=== PATIENT | male | born 1965 | race Caucasian/White ===

== ENCOUNTER 2018-05-19 15:11 | Inpatient (IN) | payer SELFPAY ==
[2018-05-19 15:42] VITALS: BMI 21.9
--- NOTE | 2018-05-19 15:43 | PCM.HP.STD ---
<Philip Garcia - Last Filed: 05/19/18 15:43> Problem List (1) Alcohol withdrawal Status: Acute (2) HLD (hyperlipidemia) Status: Chronic History of Present Illness Date of Admission: 05/19/18 Chief Complaint: acute alcohol withdrawal The patient is a 52 year old M with a pmhx of alcoholism, hld, who presents to the hospital for help with alcohol detox in acute withdrawal. His current symptoms include loose stools, abominal cramps, and lightheadedness. No hx of withdrawal seizures. He last drank at about 1030 this AM. He drinks 20-24 beers per day sometimes mixed drinks at lunch. He smokes 2-3 cigarettes per day. He does not want a patch. No other substance abuse. He last went through detox at [facility] in august and was sober for 4 months. He plans to pursue the [facility] program to stay clean. [] Past Medical History Past Medical History (Chronic Problems): Chronic Problems HLD (hyperlipidemia) (Chronic) Home Medications: Ambulatory Orders Medication Instructions Recorded Pitavastatin Calcium [Livalo] 4 mg PO DAILY 05/19/18 Surgical History: rotator cuff repair Psychiatric History: No pertinent psych hx Lives: With Family Smoking Status: Current every day smoker Tobacco Use: Cigarettes, Chew Alcohol: Heavy Drugs: None - *Family History Maternal History Items: No pertinent history Paternal History Items: Heart Disease Review of Systems Constitutional: Denies: Chills, Fever, Weight Change HEENT: Denies: Head Aches, Sinus Congestion, Sinus Drainage Cardiovascular: Denies: Chest Pain, Palpitations Respiratory: Denies: Cough, Shortness of breath at rest, Sputum production Gastrointestinal: Reports: Diarrhea, - - abdominal cramps. Denies: Nausea, Vomiting Genitourinary: Denies: Dysuria Musculoskeletal: Denies: Joint Pain, Joint Tenderness Skin: Denies: Rash, Wounds Neurological: Reports: - - lightheadedness. Denies: Focal weakness, Numbness, Tingling Psychiatric: Denies: Anxiety, Depression, Homicidal Ideations, Suicidal Ideations Hematologic/ Lymphatic: Denies: Easy Bruising, Easy Bleeding VTE Information - Inpt Only VTE Present on Admission: No VTE Mechan Device Prophylaxis: None VTE Pharm Prophylaxis ordered?: No Reason prophylaxis not ordered:: Procedure Not Indicated Patient Problems: Active and Suspected Problems Alcohol withdrawal (Acute) - Physical Exam General: Alert, Oriented x3, Cooperative HEENT: Atraumatic, PERRLA, EOMI, Normocephalic Neck: Supple, No JVD, Negative Carotid Bruits Lungs: Clear to auscultation, Normal air movement Cardiovascular: Regular rate, No murmurs Abdomen: Bowel Sounds Present, Soft, Non Tender Extremities: No edema, Capillary Refill Less than 3 Seconds Skin: No rashes, No breakdown Musculoskeletal: No Tenderness to Palpation of Joints or Extremities Neurological: Cranial nerves II-XII grossly intact Psych/Mental Status: Normal Affect, Appropriate, Alert and oriented to time, place, person, mood and affect Assessment/Plan All Active Problems Alcohol withdrawal (Acute) 1. Alcohol abuse with acute alcohol withdrawal - start CIWA protocol, ativan, folate, thiamine. Current symptoms: loos stools, abdominal cramps, lightheadedness Drinks: 20-24 beers/day occasional mixed drink No hx withdrawal seizure Last detox August 2017 - [facility], sober x 4 months. DC plan: [facility] program 2. HLD - statin 3. Nicotine abuse - does not want patch at this time. DVT ppx: early ambulation Medical stabilization day 1 of 4 This patient was seen by Philip Garcia PA-C under the supervision of Dr. Villalta <Gray Villalta - Last Filed: 05/19/18 16:10> Problem List (1) Alcohol withdrawal Status: Acute Qualifiers: Complication of substance-induced condition: uncomplicated Qualified Code(s): F10.230 - Alcohol dependence with withdrawal, uncomplicated History of Present Illness The patient is a 52 year old M Sushma voluntarily through [facility] for acute alcohol withdrawal. Patient's last drink was at 1030 today. Patient drinks 20-24 beers per day and occasionally room and Coke or 2 on top of that. Patient was sober up until about 4 months ago where he stated that he fell back in with his old crowds and started drinking again. Plan is for the patient to go to [facility] after discharge. Patient is having some abdominal cramps and tremors. [] Past Medical History Allergies No Known Allergies Allergy (Verified 05/19/18 15:58) Surgical History: rotator cuff repair Psychiatric History: No pertinent psych hx Lives: With Family Smoking Status: Current every day smoker Tobacco Use: Cigarettes, Chew Alcohol: Heavy Drugs: None - *Family History Maternal History Items: No pertinent history Paternal History Items: Heart Disease Review of Systems Constitutional: Denies: Chills, Fever, Weight Change HEENT: Denies: Head Aches, Sinus Congestion, Sinus Drainage Cardiovascular: Denies: Chest Pain, Palpitations Respiratory: Denies: Cough, Shortness of breath at rest, Sputum production Gastrointestinal: Reports: Diarrhea, -. Denies: Nausea, Vomiting Genitourinary: Denies: Dysuria Musculoskeletal: Denies: Joint Pain, Joint Tenderness Skin: Denies: Rash, Wounds Neurological: Reports: -. Denies: Focal weakness, Numbness, Tingling Psychiatric: Denies: Anxiety, Depression, Homicidal Ideations, Suicidal Ideations Hematologic/ Lymphatic: Denies: Easy Bruising, Easy Bleeding Comment: No auditory or visual who is patients. All review of systems are negative except as mentioned in the history of present illness and the other review of systems. VTE Information - Inpt Only VTE Present on Admission: No VTE Pharm Prophylaxis ordered?: Yes - Physical Exam General: Alert, Cooperative HEENT: Atraumatic, PERRLA, Normocephalic Oral: Moist Mucosa, No Gingival or Mucosal Lesions/ Ulcerations Neck: No Nodes, Thyroid Normal Size and Texture Lungs: Clear to auscultation, Normal air movement, No rhonchi, No wheeze Cardiovascular: Regular rate, Regular Rhythm, Normal S1, Normal S2, No murmurs Abdomen: Bowel Sounds Present, Soft, Non Tender, Non-Distended Skin: No rashes, No breakdown Psych/Mental Status: Normal Affect, Appropriate Weight: 71.441 kg Body Mass Index (BMI) 21.9 Assessment/Plan Patient seen and examined independently. Data reviewed. I agree with the above note by the physician equity sales assistant. 1. Acute alcohol withdrawal Intake CIWA score of 15 Will be on a Ativan taper and as needed. Additionally add thiamine and folate Patient advised that his symptoms could get worse up to 96 hours after his last drink Plan is for the patient to follow-up with the [facility] program upon discharge. 2. DVT prophylaxis with Lovenox. Code Visit Inpatient E&M: 46530 Init Hosp L2
--- NOTE | 2018-05-19 15:47 | HP.PCM_ITS ---
<Philip Garcia - Last Filed: 05/19/18 15:43> Problem List (1) Alcohol withdrawal Status: Acute (2) HLD (hyperlipidemia) Status: Chronic History of Present Illness Date of Admission: 05/19/18 Chief Complaint: acute alcohol withdrawal The patient is a 52 year old M with a pmhx of alcoholism, hld, who presents to the hospital for help with alcohol detox in acute withdrawal. His current sym ptoms include loose stools, abominal cramps, and lightheadedness. No hx of withdrawal seizures. He last drank at about 1030 this AM. He drinks 20-24 beers per day sometimes mixed drinks at lunch. He smokes 2-3 cigarettes per day. He does not want a patch. No other substance abuse. He last went through detox at [facility] in august and was sober for 4 months. He plans to pursue the [facility] program to stay clean. [] Past Medical History Past Medical History (Chronic Problems): Chronic Problems HLD (hyperlipidemia) (Chronic) Home Medications: Ambulatory Orders Medication Instructions Recorded Pitavastatin Calcium [Livalo] 4 mg PO DAILY 05/19/18 Surgical History: rotator cuff repair Psychiatric History: No pertinent psych hx Lives: With Family Smoking Status: Current every day smoker Tobacco Use: Cigarettes, Chew Alcohol: Heavy Drugs: None - *Family History Maternal History Items: No pertinent history Paternal History Items: Heart Disease Review of Systems Constitutional: Denies: Chills, Fever, Weight Change HEENT: Denies: Head Aches, Sinus Congestion, Sinus Drainage Cardiovascular: Denies: Chest Pain, Palpitations Respiratory: Denies: Cough, Shortness of breath at rest, Sputum production Gastrointestinal: Reports: Diarrhea, - - abdominal cramps. Denies: Nausea, Vomiting Genitourinary: Denies: Dysuria Musculoskeletal: Denies: Joint Pain, Joint Tenderness Skin: Denies: Rash, Wounds Neurological: Reports: - - lightheadedness. Denies: Focal weakness, Numbness, Tingling Psychiatric: Denies: Anxiety, Depression, Homicidal Ideations, Suicidal Ideations Hematologic/ Lymphatic: Denies: Easy Bruising, Easy Bleeding VTE Information - Inpt Only VTE Present on Admission: No VTE Mechan Device Prophylaxis: None VTE Pharm Prophylaxis ordered?: No Reason prophylaxis not ordered:: Procedure Not Indicated Patient Problems: Active and Suspected Problems Alcohol withdrawal (Acute) - Physical Exam General: Alert, Oriented x3, Cooperative HEENT: Atraumatic, PERRLA, EOMI, Normocephalic Neck: Supple, No JVD, Negative Carotid Bruits Lungs: Clear to auscultation, Normal air movement Cardiovascular: Regular rate, No murmurs Abdomen: Bowel Sounds Present, Soft, Non Tender Extremities: No edema, Capillary Refill Less than 3 Seconds Skin: No rashes, No breakdown Musculoskeletal: No Tenderness to Palpation of Joints or Extremities Neurological: Cranial nerves II-XII grossly intact Psych/Mental Status: Normal Affect, Appropriate, Alert and oriented to time, place, person, mood and affect Assessment/Plan All Active Problems Alcohol withdrawal (Acute) 1. Alcohol abuse with acute alcohol withdrawal - start CIWA protocol, ativan, folate, thiamine. Current symptoms: loos stools, abdominal cramps, lightheadedness Drinks: 20-24 beers/day occasional mixed drink No hx withdrawal seizure Last detox August 2017 - [facility], sober x 4 months. DC plan: [facility] 2. HLD - statin 3. Nicotine abuse - does not want patch at this time. DVT ppx: early ambulation Medical stabilization day 1 of 4 This patient was seen by Philip Garcia PA-C under the supervision of Dr. Villalta <Gray Villalta - Last Filed: 05/19/18 16:10> Problem List (1) Alcohol withdrawal Status: Acute Qualifiers: Complication of substance-induced condition: uncomplicated Qualified Code(s): F10.230 - Alcohol dependence with withdrawal, uncomplicated History of Present Illness The patient is a 52 year old M Sushma voluntarily through [facility] [employer] for acute alcohol withdrawal. Patient's last drink was at 1030 today. Patient drinks 20- 24 beers per day and occasionally room and Coke or 2 on top of that. Patient was sober up until about 4 months ago where he stated that he fell back in with his old crowds and started drinking again. Plan is for the patient to go to 180 after discharge. Patient is having some abdominal cramps and tremors. [] Past Medical History Allergies No Known Allergies Allergy (Verified 05/19/18 15:58) Surgical History: rotator cuff repair Psychiatric History: No pertinent psych hx Lives: With Family Smoking Status: Current every day smoker Tobacco Use: Cigarettes, Chew Alcohol: Heavy Drugs: None - *Family History Maternal History Items: No pertinent history Paternal History Items: Heart Disease Review of Systems Constitutional: Denies: Chills, Fever, Weight Change HEENT: Denies: Head Aches, Sinus Congestion, Sinus Drainage Cardiovascular: Denies: Chest Pain, Palpitations Respiratory: Denies: Cough, Shortness of breath at rest, Sputum production Gastrointestinal: Reports: Diarrhea, -. Denies: Nausea, Vomiting Genitourinary: Denies: Dysuria Musculoskeletal: Denies: Joint Pain, Joint Tenderness Skin: Denies: Rash, Wounds Neurological: Reports: -. Denies: Focal weakness, Numbness, Tingling Psychiatric: Denies: Anxiety, Depression, Homicidal Ideations, Suicidal Ideations Hematologic/ Lymphatic: Denies: Easy Bruising, Easy Bleeding Comment: No auditory or visual who is patients. All review of systems are negative except as mentioned in the history of present illness and the other review of systems. VTE Information - Inpt Only VTE Present on Admission: No VTE Pharm Prophylaxis ordered?: Yes - Physical Exam General: Alert, Cooperative HEENT: Atraumatic, PERRLA, Normocephalic Oral: Moist Mucosa, No Gingival or Mucosal Lesions/ Ulcerations Neck: No Nodes, Thyroid Normal Size and Texture Lungs: Clear to auscultation, Normal air movement, No rhonchi, No wheeze Cardiovascular: Regular rate, Regular Rhythm, Normal S1, Normal S2, No murmurs Abdomen: Bowel Sounds Present, Soft, Non Tender, Non-Distended Skin: No rashes, No breakdown Psych/Mental Status: Normal Affect, Appropriate Weight: 71.441 kg Body Mass Index (BMI) 21.9 Assessment/Plan Patient seen and examined independently. Data reviewed. I agree with the above note by the physician physical laboratory assistant. 1. Acute alcohol withdrawal * Intake CIWA score of 15 * Will be on a Ativan taper and as needed. * Additionally add thiamine and folate * Patient advised that his symptoms could get worse up to 96 hours after his last drink * Plan is for the patient to follow-up with the [facility] program upon discharge. 2. DVT prophylaxis with Lovenox. Code Visit Inpatient E&M: 42166 Init Hosp L2
[2018-05-19 16:10] VITALS: BP 143/91; PULSE 103; RESP 18; TEMP 36.8; O2SAT 99
[2018-05-19] MEDS: Lactated Ringers 1,000 ML 125 ML IV (16:26)
[2018-05-19] MEDS: LORazepam 1 MG Tablet PO ×2 (16:29→20:20)
[2018-05-19] MEDS: Dicyclomine 10 MG Capsule 20 MG PO (16:29)
[2018-05-19 17:03] LABS: Absolute Lymphocyte Count 1.23 X10^3/ul (0.83-4.51); Absolute Neutrophil Count 2.4 X10^3/uL (2.0-7.7); Basophil# 0.01 X10^3/uL; Basophil% 0.2 % (0-1); Eosinophil# 0.11 X10^3/uL; Eosinophils% 2.6 % (0-5); Hematocrit 37.8 % (40-54); Hemoglobin 13.5 g/dl (13.0-16.5); Lymphocyte # 1.23 X10^3/ul (4.0); Lymphocyte % 28.9 % (19-41); Mean Corp Hgb Conc 35.7 g/gl (32-36); Mean Corpuscular Hgb 37.8 pg (27.0-32.0); Mean Corpuscular Volume 105.9 fL (80-94); Mean Platelet Vol. 10.5 fl (6.2-12.0); Monocyte% 11.7 % (0-10); Neutrophil % 56.4 % (47-70); POSITIVE COUNT NO; POSITIVE DIFFERENTIAL NO; POSITIVE MORPHOLOGY NO; Platelet Count 138 K/mm3 (150-450); RBC Distribution Width CV 12.6 % (11.6-14.6); RBC Distribution Width SD 48.2 fl (35.1-43.9); Red Blood Count 3.57 M/mm3 (4.6-6.2); White Blood Count 4.3 K/mm3 (4.4-11.0)
[2018-05-19 17:20] LABS: ALB/GLOB Ratio 0.9 RATIO (0.9-2.4); AST(SGOT) 66 U/L (15-37); Alanine Aminotransfer ALT/SGPT 46 U/L (16-61); Albumin, Serum 3.5 g/dL (3.2-5.0); Alkaline Phosphatase 32 U/L (45-117); Anion Gap 8 (5-15); BUN 6 mg/dL (7-18); BUN/Creat Ratio 9.1 RATIO (10-20); Calcium,Total 8.2 mg/dL (8.5-10.1); Chloride 100 mmol/L (98-107); Creatinine, Serum 0.66 mg/dL (0.70-1.30); EST Glomerular Filtration Rate 134 mL/min (>60); Est Glom Filt Rate - Afr Amer 162 mL/min (>60); Estimated Creatinine Clearance 129.29 ml/min; Glucose 124 mg/dL (74-106); Potassium 3.7 mmol/L (3.5-5.1); Protein, Total 7.5 g/dL (6.4-8.2); Sodium Level 135 mmol/L (136-145)
[2018-05-19 17:23] LABS: Amphetamine Urine VISTA NEGATIVE (<1000 ng/mL); Barbiturate Urine VISTA NEGATIVE (< 200 ng/mL); Benzodiazepine Urine VISTA NEGATIVE (< 200 ng/mL); Cocaine Urine VISTA NEGATIVE (< 300 ng/mL); Ecstacy Urine VISTA NEGATIVE (< 500 ng/mL); Methadone Urine VISTA NEGATIVE (< 300 ng/mL); PCP Urine VISTA NEGATIVE (< 25 ng/mL); THC Urine VISTA NEGATIVE (< 50 ng/mL); Vista UDS pH Range 6
[2018-05-19 18:45] VITALS: BP 135/85; PULSE 111; RESP 16; TEMP 37.4; O2SAT 97
[2018-05-19 21:48] VITALS: BP 154/96; PULSE 100; RESP 18; TEMP 36.9
[2018-05-19] MEDS: Atorvastatin Calcium 20 MG Tablet PO (21:56)
[2018-05-19] MEDS: hydrOXYzine PAM 25 MG Capsule 50 MG PO (21:56)
[2018-05-19] MEDS: traZODone 50 MG Tablet PO (21:56)
[2018-05-19] MEDS: Haloperidol 1 MG Tablet 2 MG PO (23:25)
[2018-05-19] MEDS: 0.9% NaCl Peripheral Flush Adult/Peds IV (23:26)
[2018-05-20] VITALS (9 sets, daily range): BP systolic 111–140; BP diastolic 67–88; PULSE 80–113; RESP 14–18; TEMP 36.4–36.8; O2SAT 96–99
[2018-05-20] MEDS: LORazepam 1 MG Tablet PO ×2 (00:23→04:26)
[2018-05-20] MEDS: Ibuprofen 600 MG Tablet PO ×2 (06:03→14:29)
[2018-05-20] MEDS: hydrOXYzine PAM 25 MG Capsule 50 MG PO ×3 (06:04→18:14)
--- NOTE | 2018-05-20 07:09 | PCM.PN.HOSP ---
Patient Problems: Active and Suspected Problems Alcohol withdrawal (Acute) Subjective: Patient states overnight feeling improved since initial presentation but ongoing severe tremors despite initiation of Ativan. He states in the past he has been on something different than Ativan for acute alcohol withdrawal treatment. Discussed options and amenable to transition to alternate agent, Librium. Patient denies fevers, chills, nausea, emesis, abdominal pain, chest pain or dyspnea. Objective: Physical Examination: General: awake, alert, oriented x 3 and cooperative, seated upright in bed, notable ongoing tremoring still, having difficulty eating secondary to severity. Skin: normal color, turgor, no icterus, cyanosis. HEENT: AT/NC, EOMI, PERRLA, improved mildly dry MM. Lungs: CTA bilaterally, moderate effort, mild decrease BL bases, no rales, ronchi or wheezing. Heart: Regular rate and rhythm; no gallop, rub audible. Abdomen: soft, NTTP, ND, normal BS, +HM. Extremities: no cyanosis, clubbing, or edema. Neurological: patient awake, alert, oriented x 3; cognitive function intact; pupils equally reactive to light and accomodation; cranial nerves II-XII grossly normal, moving all 4 extremities, no focal deficits, strength moderately globally decreased secondary to acute presentation, notes improving, still notable tremors. Psychiatric: affect appears fatigued, no acute evidence of depressive or anxiety feelings. Vitals/I&O's: Vital Signs Temp Pulse Resp BP Pulse Ox 97.6 F L 80 14 123/87 H 97 05/20/18 05:55 05/20/18 05:55 05/20/18 05:55 05/20/18 05:55 05/20/18 01:48 Oxygen Delivery Method Room Air Weight: 157 lb 8 oz Body Mass Index (BMI) 21.9 Intake and Output for Last 24 Hours 05/18/18 05/19/18 05/20/18 23:59 23:59 23:59 Intake Total 1622 / 1622 121 / 121 Balance 1622 / 1622 121 / 121 Laboratory Results 05/19/18 16:52: WBC 4.3 L, RBC 3.57 L, Hgb 13.5, Hct 37.8 L, MCV 105.9 H, MCH 37.8 H, MCHC 35.7, RDW 12.6, RDW Differential 48.2 H, Plt Count 138 L, MPV 10.5, Immature Gran % (Auto) 0.200, Neut % (Auto) 56.4, Lymph % (Auto) 28.9, Esmeralda % (Auto) 11.7 H, Eos % (Auto) 2.6, Baso % (Auto) 0.2, Absolute Neuts (auto) 2.4, Absolute Lymphs (auto) 1.23, Total Counted Not Reportable 05/19/18 16:52: Sodium 135 L, Potassium 3.7, Chloride 100, Carbon Dioxide 27.0, Anion Gap 8, BUN 6 L, Creatinine 0.66 L, Estim Creat Clear Calc 129.29, Est GFR (MDRD) Af Amer 162, Est GFR (MDRD) Non-Af 134, BUN/Creatinine Ratio 9.1 L, Glucose 124 H, Calcium 8.2 L, Total Bilirubin 0.40, AST 66 H, ALT 46, Alkaline Phosphatase 32 L, Total Protein 7.5, Albumin 3.5, Globulin 4.0, Albumin/Globulin Ratio 0.9 05/19/18 16:55: Urine Opiates Screen NEGATIVE, Urine Methadone Screen NEGATIVE, Ur Barbiturates Screen NEGATIVE, Ur Phencyclidine Scrn NEGATIVE, Ur Amphetamines Screen NEGATIVE, U Methamphetamin-MDMA NEGATIVE, U Benzodiazepines Scrn NEGATIVE, Urine Cocaine Screen NEGATIVE, U Cannabinoids Screen NEGATIVE, Ur Drug Screen Comment Current Medications Acetaminophen (Tylenol) 500 mg PO Q4H PRN PRN PRN Reason: Temp > 100.4 F Atorvastatin Calcium (Lipitor) 20 mg PO QHS [facility] Last Admin: 05/19/18 21:56 Dose: 20 mg Dicyclomine HCl (Bentyl) 20 mg PO Q6H PRN PRN PRN Reason: abdominal discomfort Last Admin: 05/19/18 16:29 Dose: 20 mg Enoxaparin Sodium (Lovenox) 40 mg SC DAILY@1000 [facility] Folic Acid (Folic Acid) 1 mg PO DAILYCM [facility] Hydroxyzine Pamoate (Vistaril Pamoate Capsule) 50 mg PO Q6H PRN PRN PRN Reason: Mild Anxiety (score 1/3) Last Admin: 05/20/18 06:04 Dose: 50 mg Ibuprofen (Motrin) 600 mg PO Q8H PRN PRN PRN Reason: Mild-Moderate Pain (1-5/10) Last Admin: 05/20/18 06:03 Dose: 600 mg Influenza Virus Vaccine Quadrival (Fluarix/Fluzone) 0.5 ml IM .ONCE ONE Stop: 05/20/18 10:01 Loperamide HCl (Imodium) 2 - 4 mg PO UD PRN PRN Reason: LOOSE STOOLS Lorazepam (Ativan) 2 mg IV X1 PRN PRN Reason: Seizure Lorazepam (Ativan) 1 mg PO Q4H [facility]; Taper Stop: 05/22/18 20:29 Last Admin: 05/20/18 04:26 Dose: 1 mg Methocarbamol (Methocarbamol) 750 mg PO Q6H PRN PRN PRN Reason: Muscle Aches [facility] Nutritional Formula (Lactose Free) (Ensure Enlive) 120 ml PO 4X/DAY [facility] Last Admin: 05/19/18 21:59 Dose: 120 ml Ondansetron HCl (Zofran Odt) 4 mg PO Q6H PRN PRN PRN Reason: NAUSEA Senna (Senokot) 1 tablet PO QHS PRN PRN Reason: Constipation Sodium Chloride () 5 - 30 ml IV UD PRN PRN Reason: SALINE FLUSH Last Admin: 05/19/18 23:26 Dose: 10 ml Thiamine HCl (Vitamin B1) 100 mg PO DAILYCM [facility] Trazodone HCl (Desyrel) 50 mg PO QHS [facility] Last Admin: 05/19/18 21:56 Dose: 50 mg Medical Necessity - Tobacco Use Smoking Status: Current every day smoker Tobacco Use: Cigarettes, Chew Assessment/Plan All Active Problems Alcohol withdrawal (Acute) The patient is a 52 y/o M w/ PMHx: HLD, Tobacco and Chew, EtOH Abuse w/ 20-24 beers per day in addition to mixed drinks who presents to the [facility] on 05/19/18 in acute EtOH withdrawal with last intake 10:30 am on day of presentation with onset of nausea, tremors, agitation, tactile disturbances. (1) Acute EtOH Withdrawal: Admitted to [facility], routine labs obtained, UDS without acute findings, EtOH not obtained, initiated on [facility] service protocol with taper course of ativan; however, ongoing severe tremors, discussed with patient and will transition him to librium taper. Will continue with as needed Seroquel, Catapres, Bentyl, Vistaril, IV fluids, IV antiemetics, Tylenol as needed for pain. Once patient clinically improved and completion of taper nearing will plan [facility] assistance for transition to next level of rehabilitation care. Mag, phos pending. Maintain on CIWA protocol. Maintain on MVI, thiamine, folic acid. (2) Thrombocytopenia: Mild, admission Plts 138, likely associated w/ his EtOH abuse history. (3) Elevated LFT: Admission AST/ALT 66/46, likely associated with his EtOH abuse history. (4) Mild Hyperglycemia: Glucose 124, likely stress response w/ acute presentation. (5) Tobacco Abuse: Encouraged cessation, inpatient consultation per RT, NR if desired. (6) Hyperlipidemia: Continue home statin regimen. (7) DVT Prophylaxis: SCDs, lovenox. Code Visit Inpatient E&M: 53679 Subs Hosp L2
--- NOTE | 2018-05-20 07:15 | PN_ITS ---
Patient Problems: Active and Suspected Problems Alcohol withdrawal (Acute) Subjective: Patient states overnight feeling improved since initial presentation but ongoing severe tremors despite initiation of Ativan. He states in the past he has been on something different than Ativan for acute alcohol withdrawal treatment. Discussed options and amenable to transition to alternate agent, Librium. Patient denies fevers, chills, nausea, emesis, abdominal pain, chest pain or dyspnea. Objective: Physical Examination: General: awake, alert, oriented x 3 and cooperative, seated upright in bed, notable ongoing tremoring still, having difficulty eating secondary to severity. Skin: normal color, turgor, no icterus, cyanosis. HEENT: AT/NC, EOMI, PERRLA, improved mildly dry MM. Lungs: CTA bilaterally, moderate effort, mild decrease BL bases, no rales, ronchi or wheezing. Heart: Regular rate and rhythm; no gallop, rub audible. Abdomen: soft, NTTP, ND, normal BS, +HM. Extremities: no cyanosis, clubbing, or edema. Neurological: patient awake, alert, oriented x 3; cognitive function intact; pupils equally reactive to light and accomodation; cranial nerves II-XII grossly normal, moving all 4 extremities, no focal deficits, strength moderately globally decreased secondary to acute presentation, notes improving, still notable tremors. Psychiatric: affect appears fatigued, no acute evidence of depressive or anxiety feelings. Vitals/I&O's: Vital Signs Temp Pulse Resp BP Pulse Ox 97.6 F L 80 14 123/87 H 97 05/20/18 05:55 05/20/18 05:55 05/20/18 05:55 05/20/18 05:55 05/20/18 01:48 Oxygen Delivery Method Room Air Weight: 157 lb 8 oz Body Mass Index (BMI) 21.9 Intake and Output for Last 24 Hours 05/18/18 05/19/18 05/20/18 23:59 23:59 23:59 Intake Total 1622 / 1622 121 / 121 Balance 1622 / 1622 121 / 121 Laboratory Results 05/19/18 16:52: WBC 4.3 L, RBC 3.57 L, Hgb 13.5, Hct 37.8 L, MCV 105.9 H, MCH 37.8 H, MCHC 35.7, RDW 12.6, RDW Differential 48.2 H, Plt Count 138 L, MPV 10.5, Immature Gran % (Auto) 0.200, Neut % (Auto) 56.4, Lymph % (Auto) 28.9, Labette % (Auto) 11.7 H, Eos % (Auto) 2.6, Baso % (Auto) 0.2, Absolute Neuts (auto) 2.4, Absolute Lymphs (auto) 1.23, Total Counted Not Reportable 05/19/18 16:52: Sodium 135 L, Potassium 3.7, Chloride 100, Carbon Dioxide 27.0, Anion Gap 8, BUN 6 L, Creatinine 0.66 L, Estim Creat Clear Calc 129.29, Est GFR (MDRD) Af Amer 162, Est GFR (MDRD) Non-Af 134, BUN/Creatinine Ratio 9.1 L, Glucose 124 H, Calcium 8.2 L, Total Bilirubin 0.40, AST 66 H, ALT 46, Alkaline Phosphatase 32 L, Total Protein 7.5, Albumin 3.5, Globulin 4.0, Albumin/Globulin Ratio 0.9 05/19/18 16:55: Urine Opiates Screen NEGATIVE, Urine Methadone Screen NEGATIVE, Ur Barbiturates Screen NEGATIVE, Ur Phencyclidine Scrn NEGATIVE, Ur Amphetamines Screen NEGATIVE, U Methamphetamin-MDMA NEGATIVE, U Benzodiazepines Scrn NEGATIVE, Urine Cocaine Screen NEGATIVE, U Cannabinoids Screen NEGATIVE, Ur Drug Screen Comment Current Medications Acetaminophen (Tylenol) 500 mg PO Q4H PRN PRN PRN Reason: Temp > 100.4 F Atorvastatin Calcium (Lipitor) 20 mg PO QHS [facility] Last Admin: 05/19/18 21:56 Dose: 20 mg Dicyclomine HCl (Bentyl) 20 mg PO Q6H PRN PRN PRN Reason: abdominal discomfort Last Admin: 05/19/18 16:29 Dose: 20 mg Enoxaparin Sodium (Lovenox) 40 mg SC DAILY@1000 [facility] Folic Acid (Folic Acid) 1 mg PO DAILYCM [facility] Hydroxyzine Pamoate (Vistaril Pamoate Capsule) 50 mg PO Q6H PRN PRN PRN Reason: Mild Anxiety (score 1/3) Last Admin: 05/20/18 06:04 Dose: 50 mg Ibuprofen (Motrin) 600 mg PO Q8H PRN PRN PRN Reason: Mild-Moderate Pain (1-5/10) Last Admin: 05/20/18 06:03 Dose: 600 mg Influenza Virus Vaccine Quadrival (Fluarix/Fluzone) 0.5 ml IM .ONCE ONE Stop: 05/20/18 10:01 Loperamide HCl (Imodium) 2 - 4 mg PO UD PRN PRN Reason: LOOSE STOOLS Lorazepam (Ativan) 2 mg IV X1 PRN PRN Reason: Seizure Lorazepam (Ativan) 1 mg PO Q4H [facility]; Taper Stop: 05/22/18 20:29 Last Admin: 05/20/18 04:26 Dose: 1 mg Methocarbamol (Methocarbamol) 750 mg PO Q6H PRN PRN PRN Reason: Muscle Aches Multivitamins (Multivitamin) [facility] Nutritional Formula (Lactose Free) (Ensure Enlive) 120 ml PO 4X/DAY [facility] Last Admin: 05/19/18 21:59 Dose: 120 ml Ondansetron HCl (Zofran Odt) 4 mg PO Q6H PRN PRN PRN Reason: NAUSEA Senna (Senokot) 1 tablet PO QHS PRN PRN Reason: Constipation Sodium Chloride () 5 - 30 ml IV UD PRN PRN Reason: SALINE FLUSH Last Admin: 05/19/18 23:26 Dose: 10 ml Thiamine HCl (Vitamin B1) 100 mg PO DAILYCM [facility] Trazodone HCl (Desyrel) 50 mg PO QHS [facility] Last Admin: 05/19/18 21:56 Dose: 50 mg Medical Necessity - Tobacco Use Smoking Status: Current every day smoker Tobacco Use: Cigarettes, Chew Assessment/Plan All Active Problems Alcohol withdrawal (Acute) The patient is a 52 y/o M w/ PMHx: HLD, Tobacco and Chew, EtOH Abuse w/ 20-24 beers per day in addition to mixed drinks who presents to the [facility] on 05/19/18 in acute EtOH withdrawal with last intake 10:30 am on day of presentation with onset of nausea, tremors, agitation, tactile disturbances. (1) Acute EtOH Withdrawal: Admitted to [place], routine labs obtained, UDS without acute findings, EtOH not obtained, initiated on [facility] service protocol with taper course of ativan; however, ongoing severe tremors, discussed with patient and will transition him to librium taper. Will continue with as needed Seroquel, Catapres, Bentyl, Vistaril, IV fluids, IV antiemetics, Tylenol as needed for pain. Once patient clinically improved and completion of taper nearing will plan [facility] assistance for transition to next level of rehabilitation care. Mag, phos pending. Maintain on CIWA protocol. Maintain on MVI, thiamine, folic acid. (2) Thrombocytopenia: Mild, admission Plts 138, likely associated w/ his EtOH abuse history. (3) Elevated LFT: Admission AST/ALT 66/46, likely associated with his EtOH abuse history. (4) Mild Hyperglycemia: Glucose 124, likely stress response w/ acute presentation. (5) Tobacco Abuse: Encouraged cessation, inpatient consultation per RT, NR if desired. (6) Hyperlipidemia: Continue home statin regimen. (7) DVT Prophylaxis: SCDs, lovenox. Code Visit Inpatient E&M: 35576 Subs Hosp L2
[2018-05-20 07:34] LABS: Magnesium 1.9 mg/dL (1.6-2.6); Phosphorus 3.8 mg/dL (2.5-4.9)
[2018-05-20] MEDS: Enoxaparin 40 MG/0.4 ML Syringe SC (09:14)
[2018-05-20] MEDS: chlordiazePOXIDE 25 MG Capsule PO ×3 (09:15→21:34)
[2018-05-20] MEDS: Multivitamins,Therapeutic Tablet 1 TABLET PO (09:16)
[2018-05-20] MEDS: Thiamine Hydrochloride 100 MG Tablet PO (09:16)
[2018-05-20] MEDS: Folic Acid 1 MG Tablet PO (09:16)
[2018-05-20] MEDS: Ondansetron ODT 4 MG Tablet PO (09:16)
[2018-05-20] MEDS: Dicyclomine 10 MG Capsule 20 MG PO (10:54)
[2018-05-20] MEDS: QUEtiapine 25 MG Tablet PO ×2 (10:54→21:34)
[2018-05-20] MEDS: Nicotine Polacrilex 2 MG GUM PO (14:47)
--- NOTE | 2018-05-20 15:03 | CHAPLAIN ---
Type of Pastoral Visit _x__ Initial Visit ___ Follow-up Visit ___ On-call Visit ___ General Patient Visit ___ Spiritual Assessment ___ Family Conference ___ Bereavement ___ Rapid Response ___ Code Blue ___ Other (describe below) Pastoral Care Referral From _x__ Patient ___ Family ___ Nurse ___ Physician ___ Cartridge Filler ___ Dry Lumber Grader ___ Other (describe below) Sacrament/Intervention _x__ Active listening ___ Anointing ___ Spiritism ___ Bereavement ___ Communion ___ Danica exploration ___ _x__ Life review _x__ Prayer ___ Reconciliation ___ Sacrament of Sick _x__ Supportive presence ___ Wedding ___ Other (describe below) Pastoral Comments
[2018-05-20] MEDS: traZODone 50 MG Tablet PO (21:34)
[2018-05-20] MEDS: Atorvastatin Calcium 20 MG Tablet PO (21:34)
[2018-05-21] VITALS (22 sets, daily range): BP systolic 107–150; BP diastolic 55–92; PULSE 57–122; RESP 9–19; TEMP 35.9–36.6; O2SAT 97–99
[2018-05-21] MEDS: chlordiazePOXIDE 25 MG Capsule PO ×3 (03:08→10:14)
[2018-05-21] MEDS: hydrOXYzine PAM 25 MG Capsule 50 MG PO ×3 (03:08→15:15)
[2018-05-21] MEDS: Methocarbamol 750 MG Tablet PO (03:08)
[2018-05-21] MEDS: QUEtiapine 25 MG Tablet PO ×2 (06:24→12:16)
--- NOTE | 2018-05-21 06:41 | PCM.PN.HOSP ---
Patient Problems: Active and Suspected Problems Alcohol withdrawal (Acute) Subjective: Patient with no acute events overnight and had seemed to improve with most recent Librium at 3 AM dosing however following this onset this a.m. of increased tremors now at approximate 48-hour caitlin, discussed with staff and patient and administered interim low-dose Librium regimen with some improvement following. Patient decided tremors notes feeling improved since initial presentation. Patient denies fevers, chills, nausea, emesis, abdominal pain, chest pain or dyspnea. Objective: Physical Examination: General: awake, alert, oriented x 3 and cooperative, seated upright in bedside chair, tremor mildly improved from prior but still ongoing, had been improved the prior evening but onset again at ~ 48 hour caitlin. Skin: normal color, turgor, no icterus, cyanosis. HEENT: AT/NC, EOMI, PERRLA, improved MMM. Lungs: CTA bilaterally, moderate effort, mild decrease BL bases, no rales, ronchi or wheezing. Heart: Regular rate and rhythm; no gallop, rub audible. Abdomen: soft, NTTP, ND, normal BS. Extremities: no cyanosis, clubbing, or edema. Neurological: patient awake, alert, oriented x 3; cognitive function intact; pupils equally reactive to light and accomodation; cranial nerves II-XII grossly normal, moving all 4 extremities, no focal deficits, strength moderately globally decreased, ongoing tremors. Psychiatric: affect appears improved, less fatigued, no acute evidence of depressive or anxiety feelings. Vitals/I&O's: Vital Signs Temp Pulse Resp BP Pulse Ox 97.7 F L 73 18 141/80 H 99 05/21/18 03:06 05/21/18 03:06 05/21/18 03:06 05/21/18 03:06 05/20/18 17:33 Oxygen Delivery Method Room Air Weight: 157 lb 8 oz Body Mass Index (BMI) 21.9 Intake and Output for Last 24 Hours 05/19/18 05/20/18 05/21/18 23:59 23:59 23:59 Intake Total 1622 / 1622 121 / 121 Balance 1622 / 1622 121 / 121 Laboratory Results 05/20/18 07:00: Phosphorus 3.8, Magnesium 1.9 Current Medications Acetaminophen (Tylenol) 500 mg PO Q4H PRN PRN PRN Reason: Temp > 100.4 F Al Hydroxide/Mg Hydroxide (Mylanta Ii) 30 ml PO Q6H PRN PRN PRN Reason: dyspesia Atorvastatin Calcium (Lipitor) 20 mg PO QHS [facility] Last Admin: 05/20/18 21:34 Dose: 20 mg Bisacodyl (Dulcolax) 10 mg RECTAL DAILY PRN PRN Reason: Constipation Chlordiazepoxide (Librium) 50 mg PO Q8H [facility]; Taper Stop: 05/23/18 10:59 Last Admin: 05/21/18 03:08 Dose: 50 mg Dicyclomine HCl (Bentyl) 20 mg PO Q6H PRN PRN PRN Reason: abdominal discomfort Last Admin: 05/20/18 10:54 Dose: 20 mg Enoxaparin Sodium (Lovenox) 40 mg SC DAILY@1000 [facility] Last Admin: 05/20/18 09:14 Dose: 40 mg Folic Acid (Folic Acid) [facility] Last Admin: 05/20/18 09:16 Dose: 1 mg Hydroxyzine Pamoate (Vistaril Pamoate Capsule) 50 mg PO Q6H PRN PRN PRN Reason: Mild Anxiety (score 1/3) Last Admin: 05/21/18 03:08 Dose: 50 mg Ibuprofen (Motrin) 600 mg PO Q8H PRN PRN PRN Reason: Mild-Moderate Pain (1-5/10) Last Admin: 05/20/18 14:29 Dose: 600 mg Loperamide HCl (Imodium) 2 - 4 mg PO UD PRN PRN Reason: LOOSE STOOLS Lorazepam (Ativan) 2 mg IV X1 PRN PRN Reason: Seizure Methocarbamol (Methocarbamol) 750 mg PO Q6H PRN PRN PRN Reason: Muscle Aches Last Admin: 05/21/18 03:08 Dose: 750 mg Multivitamins (Multivitamin) 1 tablet PO [facility]ILYSSM [facility] Last Admin: 05/20/18 09:16 Dose: 1 tablet Nicotine Polacrilex (Rugby Nicotine (Bkc)) 2 mg PO Q2H PRN PRN PRN Reason: Nicotine Craving Last Admin: 05/20/18 14:47 Dose: 2 mg Nutritional Formula (Lactose Free) (Ensure Enlive) 120 ml PO 4X/DAY [facility] Last Admin: 05/20/18 21:31 Dose: Not Given Ondansetron HCl (Zofran Odt) 4 mg PO Q6H PRN PRN PRN Reason: NAUSEA Last Admin: 05/20/18 09:16 Dose: 4 mg Quetiapine Fumarate (Seroquel) 25 mg PO Q6H PRN PRN PRN Reason: agitation, anxiety Last Admin: 05/21/18 06:24 Dose: 25 mg Senna (Senokot) 1 tablet PO QHS PRN PRN Reason: Constipation Sodium Chloride () 5 - 30 ml IV UD PRN PRN Reason: SALINE FLUSH Last Admin: 05/19/18 23:26 Dose: 10 ml Thiamine HCl (Vitamin B1) 100 mg PO DAILYCM [facility] Last Admin: 05/20/18 09:16 Dose: 100 mg Trazodone HCl (Desyrel) 50 mg PO QHS [facility] Last Admin: 05/20/18 21:34 Dose: 50 mg Medical Necessity - Tobacco Use Smoking Status: Current every day smoker Tobacco Use: Cigarettes, Chew Assessment/Plan All Active Problems Alcohol withdrawal (Acute) The patient is a 52 y/o M w/ PMHx: HLD, Tobacco and Chew, EtOH Abuse w/ 20-24 beers per day in addition to mixed drinks who presents to the [facility] on 05/19/18 in acute EtOH withdrawal with last intake 10:30 am on day of presentation with onset of nausea, tremors, agitation, tactile disturbances. (1) Acute EtOH Withdrawal: Admitted to [place], routine labs obtained, UDS without acute findings, EtOH not obtained, initiated on [facility] service protocol with taper course of ativan; however, ongoing severe tremors, discussed with patient and 05/20/18 transitioned him to librium taper. 05/21/18 AM onset again increased tremors, at near 48 hour sober caitlin, will given additional 25mg librium now, last dose 3 am with next dose 11 am. Will continue with as needed Seroquel, Catapres, Bentyl, Vistaril, IV fluids, IV antiemetics, Tylenol as needed for pain. Once patient clinically improved and completion of taper nearing will plan [facility] assistance for transition to next level of rehabilitation care. Mag, phos normal. Maintain on CIWA protocol. Maintain on MVI, thiamine, folic acid. (2) Thrombocytopenia: Mild, admission Plts 138, likely associated w/ his EtOH abuse history. (3) Elevated LFT: Admission AST/ALT 66/46, likely associated with his EtOH abuse history. (4) Mild Hyperglycemia: Glucose 124, likely stress response w/ acute presentation. (5) Tobacco Abuse: Encouraged cessation, inpatient consultation per RT, NR if desired. (6) Hyperlipidemia: Continue home statin regimen. (7) DVT Prophylaxis: SCDs, lovenox. Code Visit Inpatient E&M: 21759 Subs Hosp L2
[2018-05-21] MEDS: Ibuprofen 600 MG Tablet PO (07:43)
[2018-05-21] MEDS: Folic Acid 1 MG Tablet PO (07:44)
[2018-05-21] MEDS: Thiamine Hydrochloride 100 MG Tablet PO (07:44)
[2018-05-21] MEDS: Multivitamins,Therapeutic Tablet 1 TABLET PO (07:44)
[2018-05-21] MEDS: Enoxaparin 40 MG/0.4 ML Syringe SC (09:14)
[2018-05-21] MEDS: Phenobarbital Sodium 130 MG/ML Vial 60 MG IM (11:36)
[2018-05-21] MEDS: LORazepam 1 MG Tablet 2 MG PO ×2 (15:14→17:09)
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
--- NOTE | 2018-05-21 17:43 | NURSING ---
called report to icu.
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
--- NOTE | 2018-05-21 19:59 | NURSING ---
Pt having snoring respirations. Stirred to verbal commands, but would not open eyes. Refusing to take PO fluids at this time, and did not take ordered librium, refusing.
[2018-05-22] VITALS (19 sets, daily range): BP systolic 89–150; BP diastolic 60–91; PULSE 60–107; RESP 10–18; TEMP 35.9–37.2; O2SAT 96–100
[2018-05-22] MEDS: chlordiazePOXIDE 25 MG Capsule PO ×3 (04:58→23:17)
--- NOTE | 2018-05-22 06:37 | PCM.PN.HOSP ---
Patient Problems: Active and Suspected Problems Alcohol withdrawal (Acute) Subjective: Patient transitioned to ICU evening prior secondary to increased agitation, EtOH withdrawal symptoms w/ initiation precedex. Precedex weaned at ~ 1 am with stable, improved behavior and symptoms following. Restraints initially 4 point secondary to agitation transitioned to wrist non-violent. Patient states feeling fatigued but otherwise denying any current symptoms of withdrawal with market improvement of prior behavioral changes as well as tremors. Patient does not recall any events since the day prior. Discussed plan of care and given patient improvement restraints have been removed and plan transition to prior level of care. Patient denies fevers, chills, nausea, emesis, abdominal pain, chest pain or dyspnea. Objective: Physical Examination: General: awake, alert, oriented x 3 and cooperative, seated upright in the ICU bed in no apparent distress, fatigued appearing. Skin: normal color, turgor, no icterus, cyanosis. HEENT: AT/NC, EOMI, PERRLA, mildly dry MM. Lungs: CTA bilaterally, moderate effort, mild decrease BL bases, no rales, ronchi or wheezing. Heart: Regular rate and rhythm; no gallop, rub audible. Abdomen: soft, NTTP, ND, normal BS. Extremities: no cyanosis, clubbing, or edema. Neurological: patient awake, alert, oriented x 3; cognitive function intact; pupils equally reactive to light and accomodation; cranial nerves II-XII grossly normal, moving all 4 extremities, no focal deficits, strength mildly to moderately globally decreased, no tremors presently, does not recall any events over the last 24 hours. Psychiatric: affect appears fatigued, no acute evidence of depressive or anxiety feelings. Vitals/I&O's: Vital Signs Temp Pulse Resp BP Pulse Ox 96.7 F L 70 14 107/79 100 05/22/18 06:00 05/22/18 06:00 05/22/18 06:00 05/22/18 06:00 05/22/18 06:00 Oxygen Delivery Method Room Air Weight: 157 lb 8 oz Body Mass Index (BMI) 21.9 Intake and Output for Last 24 Hours 05/20/18 05/21/18 05/22/18 23:59 23:59 23:59 Intake Total 121 / 121 283 / 283 102 / 102 Balance 121 / 121 283 / 283 102 / 102 Current Medications Acetaminophen (Tylenol) 500 mg PO Q4H PRN PRN PRN Reason: Temp > 100.4 F Al Hydroxide/Mg Hydroxide (Mylanta Ii) 30 ml PO Q6H PRN PRN PRN Reason: dyspesia Atorvastatin Calcium (Lipitor) 20 mg PO QHS [facility] Last Admin: 05/21/18 23:02 Dose: Not Given Bisacodyl (Dulcolax) 10 mg RECTAL DAILY PRN PRN Reason: Constipation Chlordiazepoxide (Librium) 50 mg PO Q8H [facility]; Taper Stop: 05/23/18 10:59 Last Admin: 05/22/18 04:58 Dose: 50 mg Dicyclomine HCl (Bentyl) 20 mg PO Q6H PRN PRN PRN Reason: abdominal discomfort Last Admin: 05/20/18 10:54 Dose: 20 mg Enoxaparin Sodium (Lovenox) 40 mg SC DAILY@1000 [facility] Last Admin: 05/21/18 09:14 Dose: 40 mg Folic Acid (Folic Acid) 1 mg PO DAILYCM [facility] Last Admin: 05/21/18 07:44 Dose: 1 mg Hydroxyzine Pamoate (Vistaril Pamoate Capsule) 50 mg PO Q6H PRN PRN PRN Reason: Mild Anxiety (score 1/3) Last Admin: 05/21/18 15:15 Dose: 50 mg Dexmedetomidine HCl 400 mcg/ (Sodium Chloride) 100 mls @ 8.93 mls/hr IV .[id number] [facility] Last Admin: 05/22/18 06:32 Dose: Not Given Sodium Chloride () 250 mls @ 15 mls/hr IV .[id number] PRN PRN Reason: SALINE FLUSH Ibuprofen (Motrin) 600 mg PO Q8H PRN PRN PRN Reason: Mild-Moderate Pain (1-5/10) Last Admin: 05/21/18 07:43 Dose: 600 mg Loperamide HCl (Imodium) 2 - 4 mg PO UD PRN PRN Reason: LOOSE STOOLS Lorazepam (Ativan) 2 mg IV X1 PRN PRN Reason: Seizure Lorazepam (Ativan) 2 mg PO Q2H PRN PRN; Protocol PRN Reason: CIWA score > 8 but <15 Last Admin: 05/21/18 17:09 Dose: 2 mg Lorazepam (Ativan) 2 mg PO UD PRN; Protocol PRN Reason: CIWA score >/=15. Lorazepam (Ativan) 2 mg IV Q2H PRN PRN; Protocol PRN Reason: CIWA score > 8 but <15 Lorazepam (Ativan) 2 mg IV UD PRN; Protocol PRN Reason: CIWA score >/=15. Methocarbamol (Methocarbamol) 750 mg PO Q6H PRN PRN PRN Reason: Muscle Aches Last Admin: 05/21/18 03:08 Dose: 750 mg [facility]ivit[facility] ([facility]amin) [facility] Last Admin: 05/21/18 07:44 Dose: 1 tablet Nicotine Polacrilex (Rugby Nicotine (Bkc)) 2 mg PO Q2H PRN PRN PRN Reason: Nicotine Craving Last Admin: 05/20/18 14:47 Dose: 2 mg Nutritional Formula (Lactose Free) (Ensure Enlive) 120 ml PO 4X/DAY [facility] Last Admin: 05/21/18 23:02 Dose: Not Given Ondansetron HCl (Zofran Odt) 4 mg PO Q6H PRN PRN PRN Reason: NAUSEA Last Admin: 05/20/18 09:16 Dose: 4 mg Quetiapine Fumarate (Seroquel) 25 mg PO Q6H PRN PRN PRN Reason: agitation, anxiety Last Admin: 05/21/18 12:16 Dose: 25 mg Senna (Senokot) 1 tablet PO QHS PRN PRN Reason: Constipation Sodium Chloride () 5 - 30 ml IV UD PRN PRN Reason: SALINE FLUSH Last Admin: 05/19/18 23:26 Dose: 10 ml Thiamine HCl (Vitamin B1) [facility] Last Admin: 05/21/18 07:44 Dose: 100 mg Trazodone HCl (Desyrel) 50 mg PO QHS [facility] Last Admin: 05/21/18 23:02 Dose: Not Given Medical Necessity - Tobacco Use Smoking Status: Current every day smoker Tobacco Use: Cigarettes, Chew Assessment/Plan All Active Problems Alcohol withdrawal (Acute) The patient is a 52 y/o M w/ PMHx: HLD, Tobacco and Chew, EtOH Abuse w/ 20-24 beers per day in addition to mixed drinks who presents to the [facility] on 05/19/18 in acute EtOH withdrawal with last intake 10:30 am on day of presentation with onset of nausea, tremors, agitation, tactile disturbances. (1) Acute Encephalopathy secondary to Acute EtOH Withdrawal: Initially admitted to [place], routine labs obtained, UDS without acute findings, EtOH not obtained, initiated on [facility] service protocol with taper course of ativan; however, ongoing severe tremors, discussed with patient and 05/20/18 transitioned him to librium taper. 05/21/18 AM onset again increased tremors, at near 48 hour sober caitlin, given additional 25mg librium. In the afternoon recurrent worsened symptoms and agitation, given IM phenobarbital that was temporizing. Recurrent agitation, withdrawal symptoms 05/21/18 5:30 pm in the setting of disorientation, therefore, patient transitioned to ICU evening prior secondary to increased agitation, EtOH withdrawal symptoms w/ initiation precedex. Precedex weaned at ~ 1 am with stable, improved behavior and symptoms following. Restraints initially 4 point secondary to agitation transitioned to wrist non-violent. Currently transitioned back to librium, given clinically improved upon continued monitoring in the ICU this AM will transition back to [place] w/ telemetry at this time. Will continue with as needed Seroquel, Catapres, Bentyl, Vistaril, IV fluids, IV antiemetics, Tylenol as needed for pain. Mag, phos normal. Maintain on CIWA protocol. Maintain on MVI, thiamine, folic acid. (2) Thrombocytopenia: Mild, admission Plts 138, likely associated w/ his EtOH abuse history. (3) Elevated LFT: Admission AST/ALT 66/46, likely associated with his EtOH abuse history. (4) Mild Hyperglycemia: Glucose 124, likely stress response w/ acute presentation. (5) Tobacco Abuse: Encouraged cessation, inpatient consultation per RT, NR if desired. (6) Hyperlipidemia: Continue home statin regimen. (7) DVT Prophylaxis: SCDs, lovenox. Code Visit Inpatient E&M: 95128 Subs Hosp L3
--- NOTE | 2018-05-22 06:41 | PN_ITS ---
Patient Problems: Active and Suspected Problems Alcohol withdrawal (Acute) Subjective: Patient transitioned to ICU evening prior secondary to increased agitation, EtOH withdrawal symptoms w/ initiation precedex. Precedex weaned at ~ 1 am with stable, improved behavior and symptoms following. Restraints initially 4 point secondary to agitation transitioned to wrist non-violent. Patient states feeling fatigued but otherwise denying any current symptoms of withdrawal with market improvement of prior behavioral changes as well as tremors. Patient does not recall any events since the day prior. Discussed plan of care and given patient improvement restraints have been removed and plan transition to prior level of care. Patient denies fevers, chills, nausea, emesis, abdominal pain, chest pain or dyspnea. Objective: Physical Examination: General: awake, alert, oriented x 3 and cooperative, seated upright in the ICU bed in no apparent distress, fatigued appearing. Skin: normal color, turgor, no icterus, cyanosis. HEENT: AT/NC, EOMI, PERRLA, mildly dry MM. Lungs: CTA bilaterally, moderate effort, mild decrease BL bases, no rales, ronchi or wheezing. Heart: Regular rate and rhythm; no gallop, rub audible. Abdomen: soft, NTTP, ND, normal BS. Extremities: no cyanosis, clubbing, or edema. Neurological: patient awake, alert, oriented x 3; cognitive function intact; pupils equally reactive to light and accomodation; cranial nerves II-XII grossly normal, moving all 4 extremities, no focal deficits, strength mildly to moderately globally decreased, no tremors presently, does not recall any events over the last 24 hours. Psychiatric: affect appears fatigued, no acute evidence of depressive or anxiety feelings. Vitals/I&O's: Vital Signs Temp Pulse Resp BP Pulse Ox 96.7 F L 70 14 107/79 100 05/22/18 06:00 05/22/18 06:00 05/22/18 06:00 05/22/18 06:00 05/22/18 06:00 Oxygen Delivery Method Room Air Weight: 157 lb 8 oz Body Mass Index (BMI) 21.9 Intake and Output for Last 24 Hours 05/20/18 05/21/18 05/22/18 23:59 23:59 23:59 Intake Total 121 / 121 283 / 283 102 / 102 Balance 121 / 121 283 / 283 102 / 102 Current Medications Acetaminophen (Tylenol) 500 mg PO Q4H PRN PRN PRN Reason: Temp > 100.4 F Al Hydroxide/Mg Hydroxide (Mylanta Ii) 30 ml PO Q6H PRN PRN PRN Reason: dyspesia Atorvastatin Calcium (Lipitor) 20 mg PO QHS [facility] Last Admin: 05/21/18 23:02 Dose: Not Given Bisacodyl (Dulcolax) 10 mg RECTAL DAILY PRN PRN Reason: Constipation Chlordiazepoxide (Librium) 50 mg PO Q8H [facility]; Taper Stop: 05/23/18 10:59 Last Admin: 05/22/18 04:58 Dose: 50 mg Dicyclomine HCl (Bentyl) 20 mg PO Q6H PRN PRN PRN Reason: abdominal discomfort Last Admin: 05/20/18 10:54 Dose: 20 mg Enoxaparin Sodium (Lovenox) 40 mg SC DAILY@1000 [facility] Last Admin: 05/21/18 09:14 Dose: 40 mg Folic Acid (Folic Acid) 1 mg PO DAILYCM [facility] Last Admin: 05/21/18 07:44 Dose: 1 mg Hydroxyzine Pamoate (Vistaril Pamoate Capsule) 50 mg PO Q6H PRN PRN PRN Reason: Mild Anxiety (score 1/3) Last Admin: 05/21/18 15:15 Dose: 50 mg Dexmedetomidine HCl 400 mcg/ (Sodium Chloride) 100 mls @ 8.93 mls/hr IV .[id number] [facility] Last Admin: 05/22/18 06:32 Dose: Not Given Sodium Chloride () 250 mls @ 15 mls/hr IV .[id number] PRN PRN Reason: SALINE FLUSH Ibuprofen (Motrin) 600 mg PO Q8H PRN PRN PRN Reason: Mild-Moderate Pain (1-5/10) Last Admin: 05/21/18 07:43 Dose: 600 mg Loperamide HCl (Imodium) 2 - 4 mg PO UD PRN PRN Reason: LOOSE STOOLS Lorazepam (Ativan) 2 mg IV X1 PRN PRN Reason: Seizure Lorazepam (Ativan) 2 mg PO Q2H PRN PRN; Protocol PRN Reason: CIWA score > 8 but <15 Last Admin: 05/21/18 17:09 Dose: 2 mg Lorazepam (Ativan) 2 mg PO UD PRN; Protocol PRN Reason: CIWA score >/=15. Lorazepam (Ativan) 2 mg IV Q2H PRN PRN; Protocol PRN Reason: CIWA score > 8 but <15 Lorazepam (Ativan) 2 mg IV UD PRN; Protocol PRN Reason: CIWA score >/=15. Methocarbamol (Methocarbamol) 750 mg PO Q6H PRN PRN PRN Reason: Muscle Aches Last Admin: 05/21/18 03:08 Dose: 750 mg [facility]amin) [facility] Last Admin: 05/21/18 07:44 Dose: 1 tablet Nicotine Polacrilex (Rugby Nicotine (Bkc)) 2 mg PO Q2H PRN PRN PRN Reason: Nicotine Craving Last Admin: 05/20/18 14:47 Dose: 2 mg Nutritional Formula (Lactose Free) (Ensure Enlive) 120 ml PO 4X/DAY [facility] Last Admin: 05/21/18 23:02 Dose: Not Given Ondansetron HCl (Zofran Odt) 4 mg PO Q6H PRN PRN PRN Reason: NAUSEA Last Admin: 05/20/18 09:16 Dose: 4 mg Quetiapine Fumarate (Seroquel) 25 mg PO Q6H PRN PRN PRN Reason: agitation, anxiety Last Admin: 05/21/18 12:16 Dose: 25 mg Senna (Senokot) 1 tablet PO QHS PRN PRN Reason: Constipation Sodium Chloride () 5 - 30 ml IV UD PRN PRN Reason: SALINE FLUSH Last Admin: 05/19/18 23:26 Dose: 10 ml Thiamine HCl (Vitamin B1) [facility] Last Admin: 05/21/18 07:44 Dose: 100 mg Trazodone HCl (Desyrel) 50 mg PO QHS [facility] Last Admin: 05/21/18 23:02 Dose: Not Given Medical Necessity - Tobacco Use Smoking Status: Current every day smoker Tobacco Use: Cigarettes, Chew Assessment/Plan All Active Problems Alcohol withdrawal (Acute) The patient is a 52 y/o M w/ PMHx: HLD, Tobacco and Chew, EtOH Abuse w/ 20-24 beers per day in addition to mixed drinks who presents to the [facility] on 05/19/18 in acute EtOH withdrawal with last intake 10:30 am on day of presentation with onset of nausea, tremors, agitation, tactile disturbances. (1) Acute Encephalopathy secondary to Acute EtOH Withdrawal: Initially admitted to [place], routine labs obtained, UDS without acute findings, EtOH not obtained, initiated on [facility] service protocol with taper course of ativan; however, ongoing severe tremors, discussed with patient and 05/20/18 transitioned him to librium taper. 05/21/18 AM onset again increased tremors, at near 48 hour sober caitlin, given additional 25mg librium. In the afternoon recurrent worsened symptoms and agitation, given IM phenobarbital that was temporizing. Recurrent agitation, withdrawal symptoms 05/21/18 5:30 pm in the setting of disorientation, therefore, patient transitioned to ICU evening prior secondary to increased agitation, EtOH withdrawal symptoms w/ initiation precedex. Precedex weaned at ~ 1 am with stable, improved behavior and symptoms following. Restraints initially 4 point secondary to agitation transitioned to wrist non-violent. Currently transitioned back to librium, given clinically improved upon continued monitoring in the ICU this AM will transition back to GA w/ telemetry at this time. Will continue with as needed Seroquel, Catapres, Bentyl, Vistaril, IV fluids, IV antiemetics, Tylenol as needed for pain. Mag, phos normal. Maintain on CIWA protocol. Maintain on MVI, thiamine, folic acid. (2) Thrombocytopenia: Mild, admission Plts 138, likely associated w/ his EtOH abuse history. (3) Elevated LFT: Admission AST/ALT 66/46, likely associated with his EtOH abuse history. (4) Mild Hyperglycemia: Glucose 124, likely stress response w/ acute presentation. (5) Tobacco Abuse: Encouraged cessation, inpatient consultation per RT, NR if desired. (6) Hyperlipidemia: Continue home statin regimen. (7) DVT Prophylaxis: SCDs, lovenox. Code Visit Inpatient E&M: 62671 Subs Hosp L3
[2018-05-22] MEDS: Folic Acid 1 MG Tablet PO (09:40)
[2018-05-22] MEDS: Multivitamins,Therapeutic Tablet 1 TABLET PO (09:40)
[2018-05-22] MEDS: Thiamine Hydrochloride 100 MG Tablet PO (09:40)
--- NOTE | 2018-05-22 10:25 | NURSING ---
Report given to Jacky GARCIA.
[2018-05-22] MEDS: Methocarbamol 750 MG Tablet PO (12:19)
[2018-05-22] MEDS: Ibuprofen 600 MG Tablet PO (20:14)
[2018-05-22] MEDS: Atorvastatin Calcium 20 MG Tablet PO (23:17)
[2018-05-22] MEDS: traZODone 50 MG Tablet PO (23:17)
[2018-05-23 04:45] VITALS: PULSE 78
[2018-05-23 06:23] VITALS: BP 131/76; PULSE 96; RESP 16; TEMP 36.4
[2018-05-23 07:30] VITALS: PULSE 143; PULSE 150; RESP 18
[2018-05-23] MEDS: LORazepam 1 MG Tablet 2 MG PO (07:37)
[2018-05-23] MEDS: Thiamine Hydrochloride 100 MG Tablet PO (08:47)
[2018-05-23] MEDS: Folic Acid 1 MG Tablet PO (08:47)
[2018-05-23] MEDS: Multivitamins,Therapeutic Tablet 1 TABLET PO (08:47)
[2018-05-23 09:00] VITALS: BP 97/65; PULSE 116; RESP 18; TEMP 36.6; O2SAT 96
--- NOTE | 2018-05-23 09:03 | DS.PCM_ITS ---
Discharge Date and Diagnosis Date of Admission: 05/19/18 Date of Discharge: 05/23/18 - Primary Discharge Diagnosis Active and Suspected Problems (1) Acute Encephalopathy secondary to Acute EtOH Withdrawal (2) Thrombocytopenia, Secondary to EtOH Abuse (3) Elevated LFT, Secondary to EtOH Abuse (4) Mild Hyperglycemia, likely stress response w/ acute presentation (5) Tobacco Abuse, Chew Tobacco (6) Hyperlipidemia - Secondary Discharge Diagnosis Chronic Problems HLD (hyperlipidemia) (Chronic) Hospital Course and Treatment Operations: None Procedures: EKG Summary of Care Provided: The patient is a 52 y/o M w/ PMHx: HLD, Tobacco and Chew, EtOH Abuse w/ 20-24 beers per day in addition to mixed drinks who presented to the [facility] on 05/19/18 in acute EtOH withdrawal with last intake 10:30 am on day of presentation with onset of nausea, tremors, agitation, tactile disturbances. Initially admitted to PR, routine labs obtained, UDS without acute findings, EtOH not obtained, initiated on [facility] service protocol with taper course of ativan; however, ongoing severe tremors, discussed with patient and 05/20/18 transitioned him to librium taper. 05/21/18 AM onset again increased tremors, at near 48 hour sober caitlin, given additional 25mg librium. In the afternoon recurrent worsened symptoms and agitation, given IM phenobarbital that was temporizing. Recurrent agitation, withdrawal symptoms 05/21/18 5:30 pm in the setting of disorientation, therefore, patient transitioned to ICU evening prior secondary to increased agitation, EtOH withdrawal symptoms w/ initiation precedex. Precedex weaned at ~ 1 am with stable, improved behavior and symptoms following. Restraints initially 4 point secondary to agitation transitioned to wrist non-violent. Successfully transitioned back to librium, given clinically improved upon continued monitoring in the ICU. Patient transferred to PR w/ telemetry without further marked event. Patient was continue on regimen as needed Seroquel, Catapres, Bentyl, Vistaril, IV fluids, IV antiemetics, Tylenol as needed for pain and completed librium taper. Mag, phos normal. Maintained concurrently on CIWA protocol. Maintained on MVI, thiamine, folic acid. Patient discharged to home in stable, improved condition with next step in new vision plan of care and recommendation to follow-up with his PCP. Patient given two additional doses of librium, 25 mg daily x 2 days upon discharge. DAY OF DISCHARGE PROGRESS NOTE: Subjective: Patient without acute event overnight per self and nursing report. Patient notes improved symptoms, no severe tremors and slept well. He notes being eager for discharge to next step in new vision plan of care. Patient denies fever, chills, nausea, emesis, abdominal pain, chest pain or dyspnea. Patient agreeable to discharge to home w/ next step in new vision plan of care. Patient will be discharged with follow-up with primary care physician within 3-5 days. Objective: T 97.8, heart rate 80, BP 97/65, respiratory rate 18, 96% on room air. Physical Examination: General: awake, alert, oriented x 3 and cooperative, seated upright in the bed in no apparent distress, eating without any issues, no marked tremors. HEENT: AT/NC, EOMI, PERRLA, improved MMM. Lungs: CTA bilaterally, moderate effort, mild decrease BL bases, no rales, ronchi or wheezing. Heart: Regular rate and rhythm; no gallop, rub audible. Abdomen: soft, NTTP, ND, normal BS. Extremities: no cyanosis, clubbing, or edema. Neurological: patient awake, alert, oriented x 3; cognitive function intact; pupils equally reactive to light and accomodation; cranial nerves II-XII grossly normal, moving all 4 extremities, no focal deficits, strength improved, mildly globally decreased, no tremors presently. Psychiatric: affect appears calm, no acute evidence of depressive or anxiety feelings. Assessment and Plan: Please see hospital summary above. Discharge Activity: - - Continue with activity parameters until cleared per primary care physician at follow-up. Continue w/ next step in new vision care plan. May resume sexual activity in: No Restrictions Weight Bearing Status: Weight bearing as tolerated Call your doctor if you observe: Fever of 101 or Higher, Inability to urinate, Inability to have a bowel movement, Shortness of breath, Dizziness, Fainting spells, Chest pain, Uncontrolled pain Home Medications: Medications to take at Discharge Pitavastatin Calcium [Livalo] 4 mg PO DAILY 05/19/18 Chlordiazepoxide [Librium] 25 mg PO DAILY #2 cap 05/23/18 Folic Acid 1 mg PO DAILYCM #30 tab 05/23/18 Multivitamins,Therapeutic [Multivitamin] 1 tab PO DAILYCM #30 tab 05/23/18 Thiamine Hydrochloride [Vitamin B1] 100 mg PO DAILYCM #30 tab 05/23/18 Following Prescrptions Were Given to Patient: Chlordiazepoxide [Librium] 25 mg PO DAILY #2 cap Folic Acid 1 mg PO DAILYCM #30 tab Multivitamins,Therapeutic [Multivitamin] 1 tab PO DAILYCM #30 tab Thiamine Hydrochloride [Vitamin B1] 100 mg PO DAILYCM #30 tab Primary Care Physician: Joe Valenzuela MD [Primary Care Provider] - Please follow up with your Primary Care Physician in: Follow-up within 3-5 days to review admission. Patient Instructions: ED Withdrawal Alcohol Disposition: Home Minutes spent on discharge:: 35 Patient Condition:: Fair Medical Necessity - Tobacco Use Smoking Status: Current every day smoker Tobacco Use: Cigarettes, Chew Meaningful Use Info Meaningful Use Diagnoses (Choose all that apply): None applicable Code Visit Inpatient E&M: 53352 Disch Hosp
--- NOTE | 2018-05-23 09:03 | DCINST_ITS ---
- Discharge Diagnoses Current Active Problems: Current Active and Chronic Problems (1) Acute Encephalopathy secondary to Acute EtOH Withdrawal (2) Thrombocytopenia, Secondary to EtOH Abuse (3) Elevated LFT, Secondary to EtOH Abuse (4) Mild Hyperglycemia, likely stress response w/ acute presentation (5) Tobacco Abuse, Chew Tobacco (6) Hyperlipidemia You will use the following diet at home:: Cardiac Your food should be the consistency of: Regular Your liquids should be the consistency of: Regular/Thin Discharge Activity: - - Continue with activity parameters until cleared per primary care physician at follow-up. Continue w/ next step in new vision care plan. May resume sexual activity in: No Restrictions Weight Bearing Status: Weight bearing as tolerated Call your doctor if you observe: Fever of 101 or Higher, Inability to urinate, Inability to have a bowel movement, Shortness of breath, Dizziness, Fainting spells, Chest pain, Uncontrolled pain Instructions: ED Withdrawal Alcohol Additional Instructions: Please complete your taper with an additional librium low dose daily dose for two additional days. Please start next dose 05/24/18. Allergies/Adverse Reactions: Allergies No Known Allergies Allergy (Verified 05/19/18 15:58) Medications to take at Discharge Pitavastatin Calcium [Livalo] 4 mg PO DAILY 05/19/18 Chlordiazepoxide [Librium] 25 mg PO DAILY #2 cap 05/23/18 Folic Acid 1 mg PO DAILYCM #30 tab 05/23/18 Multivitamins,Therapeutic [Multivitamin] 1 tab PO DAILYCM #30 tab 05/23/18 Thiamine Hydrochloride [Vitamin B1] 100 mg PO DAILYCM #30 tab 05/23/18 The following prescriptions were given: Chlordiazepoxide [Librium] 25 mg PO DAILY #2 cap Folic Acid 1 mg PO DAILYCM #30 tab Multivitamins,Therapeutic [Multivitamin] 1 tab PO DAILYCM #30 tab Thiamine Hydrochloride [Vitamin B1] 100 mg PO DAILYCM #30 tab Primary Care Physician: Joe Valenzuela MD [Primary Care Provider] - Please follow up with your Primary Care Physician in: Follow-up within 3-5 days to review admission. Test Results: Test results from this visit will be discussed in further detail at your follow- up appointment, if applicable. Proposed Discharge Date: 05/23/18
[2018-05-23 10:00] VITALS: PULSE 80
== END 2018-05-23 11:06 | disposition home or self-care (01) | DRG 897 ==
LOC: MS2 05-20 09:33 → ICU 05-21 18:16 → MS3 05-22 10:32
PROVIDERS: Family Provider Family Medicine; PCP Family Medicine; Visit Provider Family Medicine
DX: F10.239 Alcohol dependence with withdrawal, unspecified (principal); G93.40 Encephalopathy, unspecified; F17.210 Nicotine dependence, cigarettes, uncomplicated; F17.220 Nicotine dependence, chewing tobacco, uncomplicated; R79.89 Other specified abnormal findings of blood chemistry; R73.9 Hyperglycemia, unspecified; E78.5 Hyperlipidemia, unspecified; Z78.1 Physical restraint status; D69.59 Other secondary thrombocytopenia; Z23 Encounter for immunization
CPT/HCPCS: 36415; 80053; 80307; 83735; 84100; 85025; 97802; J7120; 90686; A4216

== ENCOUNTER → 2025-06-26 | Outpatient (CLI) | payer MEDICAID, SELFPAY ==
--- NOTE | 2025-06-26 13:00 | ECHOD_ITS ---
Reason For Study Reason For Study: DYSPNEA/SOB Procedure This was a 2D Doppler, Color Flow transthoracic echocardiogram. Exam performed in department. Left Ventricle Normal LV size. Mild concentric left ventricular hypertrophy. The left ventricular ejection fraction is 65 %. Stage 1 diastolic dysfunction. Right Ventricle Normal right ventricle. Atria The left and right atria are normal. Mitral Valve Mild (1+) mitral valve insufficiency. Tricuspid Valve Trivial tricuspid valve insufficiency. Unable to estimate RV systolic pressure due to insufficient tricuspid regurgitant envelope. Aortic Valve Moderately calcified trileaflet aortic valve. Mild aortic valve stenosis with mean peak gradient 17 mmHg. Valve area 1.3 cm??. Mild aortic valve regurgitation. Pulmonic Valve The pulmonic valve is not well visualized. Trivial pulmonic valve insufficiency. Great Vessels Normal sized aortic root. Pericardium/Pleural No pericardial effusion. MMode/2D Measurements & Calculations LVIDd: 4.2 cm IVSd: 1.2 cm LVOT diam: 2.0 cm LVIDs: 2.6 cm LVPWd: 0.94 cm LVOT area: 3.2 cm2 RVDd: 3.9 cm FS: 38.8 % Ao root diam: 3.3 cm LAV(MOD-bp): 35.6 ml LVAd ap4: 29.7 cm2 LAV(MOD-bp) Indexed: 16.8 ml/m2 LVLd ap4: 8.4 cm LAV(MOD-sp2): 43.6 ml EDV(MOD-sp4): 87.7 ml LAV(MOD-sp4): 27.7 ml EDV(sp4-el): 89.2 ml LVAs ap4: 15.2 cm2 LVLs ap4: 6.8 cm ESV(MOD-sp4): 29.1 ml ESV(sp4-el): 28.8 ml EF(MOD-sp4): 66.8 % EF(sp4-el): 67.7 % LVAd ap2: 29.5 cm2 SV(MOD-sp4): 58.6 ml SV(MOD-sp2): 55.5 ml LVLd ap2: 8.7 cm SI(MOD-sp4): 27.7 ml/m2 SI(MOD-sp2): 26.3 ml/m2 EDV(MOD-sp2): 84.7 ml EDV(sp2-el): 84.6 ml LVAs ap2: 15.6 cm2 LVLs ap2: 7.0 cm ESV(MOD-sp2): 29.2 ml ESV(sp2-el): 29.4 ml EF(MOD-sp2): 65.6 % SV(sp4-el): 60.3 ml LA dimension(2D): 3.7 cm LA A4 area: 12.5 cm2 RA A4 area: 15.3 cm2 TAPSE: 2.0 cm Time Measurements MV dec time: 0.26 sec Doppler Measurements & Calculations MV E max giancarlo: 58.5 cm/sec Lat Peak E' Giancarlo: 6.5 cm/sec Med Peak E' Giancarlo: 9.7 cm/sec MV A max giancarlo: 92.8 cm/sec E/E' lat: 9.0 E/E' med: 6.0 MV E/A: 0.63 Ao V2 max: 261.9 cm/sec AI max giancarlo: 389.3 cm/sec MV dec slope: 222.7 cm/sec2 Ao max P.5 mmHg AI max P.6 mmHg Ao V2 mean: 198.3 cm/sec Ao mean P.1 mmHg AI dec slope: 266.5 cm/sec2 Ao V2 VTI: 58.6 cm AI P1/2t: 427.9 msec AV (velocity ratio): 0.41 JOSE L(I,D): 1.3 cm2 JOSE L(V,D): 1.3 cm2 LV V1 max: 104.8 cm/sec SV(LVOT): 76.3 ml PA V2 max: 91.8 cm/sec LV V1 max P.4 mmHg LV V1 mean P.5 mmHg LV V1 mean: 74.3 cm/sec LV V1 VTI: 23.8 cm ECHO/Echo Complete Interpretation Summary The left ventricular ejection fraction is 65 %. Mild concentric left ventricular hypertrophy. Stage 1 diastolic dysfunction. Mild (1+) mitral valve insufficiency. Moderately calcified trileaflet aortic valve. Mild aortic valve stenosis with m kristal peak gradient 17 mmHg. Valve area 1.3 cm??. Mild aortic valve regurgitation. Ordering Physician: Daren Khalil Referring Physician: Out of town Dr Performed By: Alex Moran RDCS
== END | disposition home or self-care (01) ==
LOC: CVS 12:59
PROVIDERS: Referring Provider Internal Medicine Cardiovascular Disease; Visit Provider Internal Medicine Cardiovascular Disease
DX: R01.1 Cardiac murmur, unspecified (principal); R06.02 Shortness of breath; I10 Essential (primary) hypertension
CPT/HCPCS: 93306

== ENCOUNTER → 2025-07-26 | Outpatient (CLI) | payer MEDICAID, SELFPAY ==
--- NOTE | 2025-07-26 12:50 | STEWCON_ITS ---
Reason For Study Reason For Study: Dyspnea on exertion. Murmur Stress Results Protocol: Stress Echo Dm Protocol with Definity Maximum Predicted HR: 159 bpm Target HR: 135 bpm % Maximum Predicted HR: 93 % DurationHeart Rate Stage (mm:ss) (bpm) BP Comment Baseline 74 120/78Patient denies chest pain or dyspnea. Stage 1 3:00 105 144/84Patient denies chest pain Stage 2 3:00 127 152/86Mild dyspnea. Denies chest pain. Stage 3 2:10 148 162/88Moderate dyspnea. Denies chest pain. Recovery 96 130/68Patient denies chest pain or dyspnea. 2ml Total Definity used per protocol. Stress Duration: 8:10 mm:ss Maximum Stress HR: 148 bpm Baseline Echocardiogram Findings Stress Echo Wall motion Data Resting WM Intermediate WM Stress WM ECHO/Stress Test Echo W/Contrast Interpretation Summary Exercise stress echo. 59-year-old man with a history of chest pain. Resting EKG demonstrates normal sinus rhythm with a rate of 76 bpm resting bloo d pressure is 120/78 mmHg. The patient exercised according to the regular Dm protocol for total duration of 8 minut es and 10 seconds completing 2 minutes and 10 seconds to stage III of the Dm protocol the maximum heart rate attain ed was 148 bpm which was 93% of maximum predicted heart rate the maximum workload was 10.1 metabolic equivalents. At re st there were no ST or T wave changes noted suggest ischemia and at peak exercise upsloping ST changes were noted we did not meet the criteria for ischemia. No clinical angina was noted. The peak blood pressure was 162/88 mmHg which was a normal blood pressure response to exercise. The rate-pressure product was 24,000. Stress echocardiogram. Stress echocardiogram was performed with and without Def inity. The resting echocardiogram demonstrated ejection fraction approximately 60% with no wall motion abnormalit ies noted at peak exercise there was thickening of all ortiz reduction of the ventricular cavity size peaking of eje ction fraction approximately 70%. Moderate dyspnea was noted. Conclusion: Normal exercise stress echo with no EKG or echocardiographic criteria for ische hesham at a high workload. Moderate dyspnea noted at peak exercise. Ordering Physician: Bhavesh Bland Referring Physician: Bhavesh Bland Performed By: Alyson Parra RCS
== END | disposition home or self-care (01) ==
PROVIDERS: Referring Provider Student in an Organized Health Care Education/Training Program; Visit Provider Student in an Organized Health Care Education/Training Program
DX: R06.09 Other forms of dyspnea (principal)
CPT/HCPCS: 93350; 93017; Q9957; A4216; C8928